=== PATIENT | male | born 1970 | race Caucasian/White ===

== ENCOUNTER 2019-02-26 14:14 | Emergency (ER) | payer MEDICAID, OTHER ==
[~2019-02-26] VITALS: Ht 162.6 cm; Wt 68.2 kg
[2019-02-26 14:52] VITALS: BP 118/73
[2019-02-26] MEDS ORDERED: ibuprofen tablet 400 MG TABLET PO ONE (15:35)
[2019-02-26] MEDS ORDERED: cephalexin 250mg capsule PO ONE (15:35)
[2019-02-26] MEDS ORDERED: sulfamethoxazole/trimethoprim DS (800/160mg) tablet PO ONE (15:35)
[2019-02-26] MEDS ORDERED: CEPH250T PO (15:39)
[2019-02-26] MEDS ORDERED: SULF1TAB49 PO (15:39)
== END 2019-02-26 16:34 | disposition home or self-care (01) ==
LOC: EDBD 14:15 → ER 14:15
DX: L02.512 Cutaneous abscess of left hand (principal); L02.511 Cutaneous abscess of right hand; F17.200 Nicotine dependence, unspecified, uncomplicated; Z79.899 Other long term (current) drug therapy; Z59.0 Homelessness
CPT/HCPCS: 99284